=== PATIENT | female | born 1975 | race Caucasian/White ===

== ENCOUNTER 2016-11-10 11:26 | Outpatient (CLI) | payer MEDICAID ==
--- NOTE | 2016-11-10 15:37 | Mammography Report ---
BILATERAL DIGITAL SCREENING MAMMOGRAM with CAD: 11/10/16 CLINICAL: Routine screening. COMPARISON:None available. However, a prior mammogram was apparently done at [facility]. FINDINGS: The breasts are heterogeneously dense, which may obscure small masses. Bilateral parenchymal asymmetries on the CC views require comparison with the prior mammogram or additional imaging.No architectural distortion or suspicious calcifications. IMPRESSION: Bilateral asymmetries requiring further evaluation. BI-RADS CATEGORY: 0 -- Additional Evaluation Required RECOMMENDATION: Comparison with a previous mammogram. We will attempt to obtain a prior mammogram. If we do not obtain a prior mammogram for comparison within 30 days, a revised report will be issued recommending a recall for additional imaging of both breasts. Please be advised that the patient should not schedule an appointment for return until adequate time (at least 2 weeks) has passed for us to obtain the prior mammogram. ACR BI-RADS MAMMOGRAPHIC CODES: 0 = Needs additional imaging evaluation; 1 = Negative; 2 = Benign; 3 = Probably benign; 4 = Suspicious; 5 = Malignant; 6 = Known biopsy-proven malignancy COMMENT: 1. Dense breast tissue, i.e., adenosis, fibrocystic changes, etc., may obscure an underlying neoplasm. 2. Approximately 10% of cancers are not detected with mammography. 3. A negative mammography report should not delay biopsy if a clinically suspicious mass is present. COMMENT: Patient follow-up letters are generated via our [employer] application.
== END 2016-11-10 11:27 | disposition home or self-care (01) ==
LOC: SPVWC 11:26
PROVIDERS: ATTEND Family Medicine
DX: Z12.31 Encounter for screening mammogram for malignant neoplasm of breast (principal)
CPT/HCPCS: 77067; G0202

== ENCOUNTER 2017-01-13 11:20 | Outpatient (CLI) | payer MEDICAID ==
--- NOTE | 2017-01-13 14:09 | Mammography Report ---
RIGHT DIGITAL DIAGNOSTIC MAMMOGRAM and RIGHT BREAST ULTRASOUND: 01/13/17 11:20:00 CLINICAL: Recalled for asymmetries. COMPARISON:11/10/16 screening FINDINGS: ML and spot magnification ML and CC views were performed. Partial effacement of asymmetries on the spot views. In addition, a group of amorphous calcifications is identified within the dominant asymmetry. No layering on the lateral view. Ultrasound of the right breast (including all four quadrants and the retroareolar area) was performed and demonstrated normal fibroglandular and fatty structures except for a single benign cyst at 7 o'clock 3 cm from the nipple measuring 5 x 3 x 4 mm. No solid mass or shadowing. IMPRESSION: Suspicious right upper outer calcifications. BI-RADS CATEGORY: 4--Suspicious RECOMMENDATION: Stereotactic biopsy of the right breast. I discussed the findings and the recommendation for needle core biopsy with the patient at the time of the examination. ACR BI-RADS MAMMOGRAPHIC CODES: 0 = Needs additional imaging evaluation; 1 = Negative; 2 = Benign; 3 = Probably benign; 4 = Suspicious; 5 = Malignant; 6 = Known biopsy-proven malignancy COMMENT: 1. Dense breast tissue, i.e., adenosis, fibrocystic changes, etc., may obscure an underlying neoplasm. 2. Approximately 10% of cancers are not detected with mammography. 3. A negative mammography report should not delay biopsy if a clinically suspicious mass is present. COMMENT: Patient follow-up letters are generated via our [employer] application.
== END 2017-01-13 11:21 | disposition home or self-care (01) ==
LOC: SPVWC 11:20
PROVIDERS: ATTEND Family Medicine
DX: N60.01 Solitary cyst of right breast (principal); R92.1 Mammographic calcification found on diagnostic imaging of breast
CPT/HCPCS: 76641; G0206

== ENCOUNTER 2017-01-27 09:36 | Outpatient (CLI) | payer MEDICAID ==
--- NOTE | 2017-01-27 12:51 | Mammography Report ---
RIGHT DIGITAL DIAGNOSTIC MAMMOGRAM: 01/27/17 09:36:00 CLINICAL: For clip placement immediately status post stereotactic biopsy. COMPARISON:01/13/17 FINDINGS: A biopsy clip is now identified at the site of previously described calcifications which have been largely removed. IMPRESSION: Concordant clip placement status post stereotactic biopsy. BI-RADS CATEGORY: 4--Suspicious Pathology pending.
--- NOTE | 2017-01-27 12:53 | Mammography Report ---
STEREOTACTIC VACUUM ASSISTED BIOPSY WITH CLIP PLACEMENT RIGHT BREAST: 01/27/17 09:36:00 CLINICAL: Calcifications. COMPARISON:01/13/17 FINDINGS: Consent for the procedure was obtained. The group of upper outer calcifications was targeted with stereotactic guidance. The skin was prepped with Betadine and anesthetized with 1% lidocaine. 2% lidocaine with epinephrine was injected for deeper anesthesia. 8 gauge Mammotome biopsy was performed from a approach through a small dermatotomy. Prefire and post-fire images demonstrated satisfactory positioning of the probe. Samples were obtained around the clock face. A specimen radiograph confirmed satisfactory sampling with removal of benefits representative calcifications. A clip was deployed at the biopsy site and placement was confirmed with a radiograph. The probe was removed and hemostasis was achieved with mild pressure. A sterile dressing was applied. The patient tolerated the procedure well and there were no apparent complications. Two view mammogram demonstrated concordant position of the biopsy clip. IMPRESSION: Uncomplicated stereotactic biopsy with clip placement right breast.
== END 2017-01-27 09:37 | disposition home or self-care (01) ==
LOC: SPVWC 09:36
PROVIDERS: ATTEND Family Medicine
DX: C50.511 Malignant neoplasm of lower-outer quadrant of right female breast (principal); D05.11 Intraductal carcinoma in situ of right breast; N64.89 Other specified disorders of breast; Z88.2 Allergy status to sulfonamides
CPT/HCPCS: 19081; 88305; 88361; A4648; G0206

== ENCOUNTER 2017-02-18 12:14 | Outpatient (CLI) | payer MEDICAID ==
--- NOTE | 2017-02-21 10:43 | Magnetic Resonance Report ---
BILATERAL BREAST MRI WITHOUT AND WITH CONTRAST: 02/18/17 12:14:00 CLINICAL: Newly diagnosed right breast cancer. Status post right stereotactic breast biopsy for calcifications on 01/27/17 with pathologic diagnosis of invasive carcinoma NOS, Melstone grade III/III. COMPARISON:11/10/16 bilateral mammogram and 01/13/17 right mammogram. Right breast ultrasound was negative on 01/13/17. TECHNIQUE: Axial 1.0-mm T1 without, axial high resolution 2.0-mm T2 and axial 1.0-mm dynamic Vibrant high-resolution postcontrast T1 fat saturation sequences on a 1.5 Kylie magnet. The examination was performed with an 8 channel dedicated Sentinelle breast coil. Post processing with CAD and subtraction was performed on an [employer] workstation. 19.0 cc of Multihance was injected without incident via a right antecubital vein 22-gauge INT for the contrast portion of the exam. Consent was obtained prior to the administration of the contrast. FINDINGS: Right: Marked background parenchymal enhancement. An irregular enhancing mass at 9:30 o'clock 10.4 cm from the nipple contains a biopsy clip and correlates with the known cancer. It measures 2.2 x 2.2 x 1.3 cm and demonstrates heterogeneous enhancement with mixed kinetics, 283% peak enhancement and 4% type III washout. A second mass is identified approximately 1 cm anterior and slightly more medial than the dominant mass and appears to communicate with the known cancer. It measures 8 x 8 mm and demonstrates heterogeneous enhancement with mixed kinetics, 283% peak enhancement and 4% type III washout. The maximum span of both masses measures 3.5 cm. No other mass or suspicious enhancement of the right breast. A single suspicious right level II axillary lymph node measures 1.2 cm. It hasn't minimal central fat and a 4 mm nodule at its posterior aspect. The margins of the lymph node also appear irregular on some sequences. Left: Moderate background parenchymal enhancement. No mass or suspicious enhancement. A benign intraparenchymal lymph node at 6 o'clock approximately 8 cm from the nipple measures 1.3 cm. It has prominent central fat. No suspicious left axillary or left internal mammary lymph nodes. IMPRESSION: 1. A 3.5 cm right upper breast cancer and one suspicious right axillary lymph node. It is notable that a mass was not identified by ultrasound and mammographic calcifications underestimate the true size of the right breast cancer. 2. Negative left breast. RIGHT BI-RADS 6 -- Known Cancer LEFT BI-RADS 1 -- Negative
== END 2017-02-18 12:15 | disposition home or self-care (01) ==
LOC: SPVIMAG 12:14
PROVIDERS: ATTEND Surgery
DX: C50.411 Malignant neoplasm of upper-outer quadrant of right female breast (principal)
CPT/HCPCS: A9577; C8908; 77059

== ENCOUNTER 2017-03-09 13:20 | Outpatient (CLI) | payer MEDICAID ==
--- NOTE | 2017-03-09 16:36 | Ultrasound Report ---
ULTRASOUND GUIDED NEEDLE CORE BIOPSY OF A RIGHT AXILLARY LYMPH NODE WITH CLIP PLACEMENT : 03/09/17 13:20:00 CLINICAL: Right breast cancer and a suspicious right axillary lymph node by MRI. COMPARISON :MRI Breast 02/18/17 FINDINGS: The procedure was explained to the patient and informed consent was obtained. Ultrasound demonstrated the suspicious lymph node correlating with the MRI finding. The skin in the axilla was prepped with Betadine and anesthetized with 1% lidocaine. Ultrasound guided needle core biopsy of the lymph node was performed through a small dermatotomy using 2% lidocaine with epinephrine for deep anesthesia and a 18-gauge Achieve biopsy device. samples were obtained and placed in formalin. A clip was deployed within the lymph node. Hemostasis was achieved with minimal pressure and a sterile dressing was applied. The patient tolerated the procedure well and there were no apparent complications. She was discharged in good condition and was given instructions for wound care and followup. IMPRESSION: Uncomplicated ultrasound-guided needle core biopsy of a right lymph node with clip placement.
== END 2017-03-09 13:21 | disposition home or self-care (01) ==
LOC: SPVWC 13:20
PROVIDERS: ATTEND Surgery
DX: C50.411 Malignant neoplasm of upper-outer quadrant of right female breast (principal); Z17.0 Estrogen receptor positive status [ER+]; Z88.2 Allergy status to sulfonamides
CPT/HCPCS: 38505; 76942; 88305; 88342

== ENCOUNTER 2017-03-30 08:20 | Day surgery (SDC) | payer MEDICAID ==
[2017-03-29 12:56] LABS: Basophils # (Auto) 0.1 K/mm3 (0.0-0.1); Basophils % (Auto) 0.7 % (0.0-1.8); Eosinophils # (Auto) 0.2 K/mm3 (0.0-0.4); Eosinophils % (Auto) 2.9 % (0.0-4.3); Hematocrit 34.1 % (30.3-42.9); Hemoglobin 11.1 gm/dl (10.1-14.3); Lymphocytes # (Auto) 1.6 K/mm3 (1.2-5.4); Lymphocytes % (Auto) 21.1 % (13.4-35.0); Mean Corpuscular HGB Conc 33 % (30-34); Mean Corpuscular Hemoglobin 24 pg (28-32); Mean Corpuscular Volume 73 fl (79-97); Monocytes # (Auto) 0.6 K/mm3 (0.0-0.8); Monocytes % (Auto) 7.1 % (0.0-7.3); Platelet Count 335 K/mm3 (140-440); Red Blood Count 4.66 M/mm3 (3.65-5.03); Red Cell Distribution Width 15.7 % (13.2-15.2)
[2017-03-29 13:43] LABS: BUN/Creatinine Ratio 18; Blood Urea Nitrogen 11 mg/dL (7-17); Calcium 8.9 mg/dL (8.4-10.2); Hemolysis Index 8
--- NOTE | 2017-03-29 14:37 | Anesthesia Consultation ---
Anesthesia Consult and Med Hx Date of service: 03/29/17 - Airway Anesthetic Teeth Evaluation: Good ROM Head & Neck: Adequate Mental/Hyoid Distance: Adequate Mallampati Class: Class II Intubation Access Assessment: Probably Good - Pulmonary Exam CTA: Yes - Cardiac Exam Cardiac Exam: RRR - Pre-Operative Health Status ASA Pre-Surgery Classification: ASA2 Proposed Anesthetic Plan: General - Pulmonary Hx Smoking: No Hx Asthma: No - Cardiovascular System Hx Hypertension: No - Central Nervous System Hx Psychiatric Problems: No - Endocrine Hx Non-Insulin Dependent Diabetes: Yes - Other Systems Hx Alcohol Use: No Hx Substance Use: No Hx Cancer: Yes
[~2017-03-30 08:20] MED LIST: NACL 0.9% 1000 ML 1,000 ML IV SCH; PEPCID PO NR; WATER FOR IRRIG STERILE IR ONE
[2017-03-30] MEDS ORDERED: XYLOCAINE 1% 20 mL INFILTRATI NR (08:31)
[2017-03-30] MEDS ORDERED: NACL BACTERIOSTATIC INFILTRATI ONE (09:03)
--- NOTE | 2017-03-30 09:25 | Anesthesia Day of Surgery ---
Anesthesia Day of Surgery - Day of Surgery Patient Examined: Yes Patient H&P Reviewed: Yes Patient is NPO: Yes
[2017-03-30] MEDS ORDERED: MARCAINE 0.25% INFILTRATI ONE ×2 (09:44→13:32)
[2017-03-30] MEDS ORDERED: DECADRON ONE ×2 (09:44→12:22)
[2017-03-30] MEDS: VERSED IV NR ×2 (09:46→09:53)
--- NOTE | 2017-03-30 09:56 | Mammography Report ---
NEEDLE LOCALIZATION AND HOOKWIRE PLACEMENT RIGHT BREAST:03/30/17 CLINICAL: Right breast cancer. COMPARISON: 01/27/17 FINDINGS: Using mammographic guidance, 1% lidocaine local anesthesia and sterile technique, a 5.0-cm Dewitt hookwire was placed from a CC from above approach to localize a biopsy clip at the known cancer. Two views demonstrated satisfactory targeting. The hookwire was deployed and an additional lateral view was obtained. The patient tolerated the procedure well and there were no apparent complications. IMPRESSION: Uncomplicated hookwire placement right breast.
[2017-03-30] MEDS ORDERED: SUBLIMAZE ONE (09:59)
[2017-03-30] MEDS ORDERED: XYLOCAINE MPF 2% ONE (09:59)
[2017-03-30] MEDS ORDERED: ZEMURON IV ONE (09:59)
[2017-03-30] MEDS ORDERED: DIPRIVAN 10 MG/ML IV ONE (10:00)
[2017-03-30] MEDS ORDERED: SUBLIMAZE IV NR (10:00)
[2017-03-30] MEDS ORDERED: WATER FOR IRRIG STERILE IR ONE (10:28)
[2017-03-30] MEDS ORDERED: ANCEF/STERILE WATER 2 GM/20 ML IV NR (11:00)
[2017-03-30] MEDS ORDERED: NEO SYNEPHRINE/NS Syringe(OR USE) IV ONE (12:00)
[2017-03-30] MEDS ORDERED: ZOFRAN ONE (12:22)
--- NOTE | 2017-03-30 12:37 | Mammography Report ---
SPECIMEN RADIOGRAPH RIGHT BREAST: 03/30/17 08:20:00 CLINICAL: Surgical excision of a known cancer. FINDINGS: A spiculated mass with a biopsy clip and a hookwire are identified within the specimen. IMPRESSION: Excision of the targeted lesion.
--- NOTE | 2017-03-30 12:51 | Short Stay Summary ---
Short Stay Documentation Date of service: 03/30/17 - History H&P: obtained from office - Allergies and Medications Current Medications: Allergies Sulfa (Sulfonamide Antibiotics) Allergy (Verified 03/25/17 09:22) Hives Home Medications Medication Instructions Recorded Confirmed Last Taken Type Fenofibrate [Tricor] 145 mg PO QDAY 03/25/17 03/30/17 03/28/17 History Ferrous Sulfate [Iron] 325 mg PO DAILY 03/25/17 03/30/17 03/28/17 History Sitagliptin Phosphate [Januvia] 50 mg PO DAILY 03/25/17 03/30/17 03/16/17 History HYDROcodone/APAP 5-325 [[place] 1 each PO Q6HR PRN #30 tablet 03/30/17 Unknown Rx 5/325] Active Medications Cefazolin Sodium (Ancef/Sterile Water 2 Gm/20 Ml) 2 gm IV PREOP NR Stop: 03/30/17 23:00 Famotidine (Pepcid) 20 mg PO PREOP NR Stop: 03/30/17 23:59 Last Admin: 03/30/17 09:47 Dose: 20 mg Sodium Chloride (Nacl 0.9% 1000 Ml) 1,000 mls @ 100 mls/hr IV DIRECT NICHOLAS Last Admin: 03/30/17 09:30 Dose: 100 mls/hr Midazolam HCl (Versed) 2 mg IV PREOP NR Stop: 03/30/17 23:59 Last Admin: 03/30/17 09:53 Dose: 2 mg - Brief post op/procedure progress note Date of procedure: 03/30/17 Pre-op diagnosis: Right breast cancer of the upper outer quadrant Post-op diagnosis: same Procedure: Complex right needle localization partial mastectomy and SLNB Anesthesia: GETA Findings: Radiograph specimen with clip and wire present; 2 SLNs Surgeon: JADA GAMING Station Master: DANETTE RASMUSSEN Estimated blood loss: minimal Pathology: list (right partial mastectomy and SLNsx2) Specimen disposition: to lab Condition: stable - Disposition Condition at discharge: Good Disposition: DC-01 TO HOME OR SELFCARE Short Stay Discharge Plan Activity: other (no heavy lifting) Diet: regular Wound: other (keep incision clean and dry; may shower in 24 hours; no baths, pools or lakes; do not rub or scrub incision) Follow up with: DELORES LARES MD [Primary Care Provider] - 7 Days JADA GAMING MD [Staff Physician] - 7 Days Prescriptions: HYDROcodone/APAP 5-325 [[place] 5/325] 1 each PO Q6HR PRN #30 tablet PRN Reason: Pain
--- NOTE | 2017-03-30 12:59 | Operative Report ---
Operative Report Operative Report: Date of Service: March 30, 2017 Preoperative diagnosis: Right breast cancer of the upper outer quadrant Postoperative diagnosis: Same Procedure: Right needle localization partial mastectomy of the upper outer quadrant and SLNB Surgeon: Rama Henry MD Assistant Manager Pt: Rossana Donato DO Anesthesia: General Findings: Right wire and clip present within radiograph specimen; 2 SLNs Complications: None EBL: Minimal Disposition: PACU in good condition Indications for operative procedure: This is a 41 year old lady with newly diagnosed right breast cancer of the upper outer quadrant, Stage II [id number] ER/ LA positive. Recommendations are to proceed with breast conservation. Genetic testing with no significant gene mutation. She wished to proceed with the above procedure. Procedure in detail: The patient was taken to radiology for wire placement for localization known area of cancer. Patient was then taken to the operating room. Gen. anesthesia was administered. The right nipple was injected with radioisotope. The righ breast and axilla were prepped and draped in the normal sterile operative fashion. The wire was identified. Timeout was performed. Gamma probe was inserted into the axilla. The area of hot spot was identified. A right axillary incision was made with a 15 blade knife with dissection taken down to the subcutaneous tissues. The axillary fascia was opened with the Bovie cautery. The gamma probed was inserted into the axilla and 2 SLNS were identified and dissected free. All remaining counts were less than 10% of the highest count. Lymph nodes were sent to pathology for permanent processing. Hemostasis was obtained in the right axillary cavity. Axillary cavity was appropriately irrigated and suctioned. Hemostasis was noted. Axillary fascia was approximated and closed using interrupted 3-0 Vicryl and the skin brought together and closed using a running 4-0 Monocryl followed by skin affix. Attention was then taken towards the right breast. Lateral breast incision was made with a 15 blade knife and dissection taken down to subcutaneous tissues. First began raising of the medial flap with removal of the wire from the skin with dissection take down to the pectoralis muscle, followed by raising of the lateral flap, superior flap and inferior flap with all flaps taken down to the pectoralis muscle. The breast area of concern was appropriately removed posteriorly from the pectoralis muscle with the aid of the Bovie cautery. The wire was not encountered. Specimen was marked and then sent to pathology and radiology; radiograph specimen with wire and clip present. Breast cavity was irrigated and hemostasis was obtained. Then proceeded with oncoloplastic closure with mobiliation of the posterior deep tissues. The posterior deep breast tissues were approximated and closed using interrupted 3-0 Vicryl. The subcutaneous tissues were approximated and closed using interrupted 3-0 Vicryl followed by closing of the skin with a running 4-0 Monocryl and skin affix. The patient tolerated surgery very well and she was awaken from anesthesia without any complication and transported to PACU in good condition.
[2017-03-30] MEDS ORDERED: NORCO 5/325 PO PRN (13:28)
[2017-03-30] MEDS ORDERED: HEPARIN 10,000 UNITS/10 ML ONE (13:32)
[2017-03-30] MEDS ORDERED: NACL 0.9% 100 ML ONE (13:32)
[2017-03-30 15:08] VITALS: BP 104/59
[2017-03-30] MEDS ORDERED: PHENERGAN PO ONE (16:00)
== END 2017-03-30 15:26 | disposition home or self-care (01) ==
LOC: OR 08:20
PROVIDERS: ATTEND Surgery
DX: C50.411 Malignant neoplasm of upper-outer quadrant of right female breast (principal); E11.9 Type 2 diabetes mellitus without complications; Z80.3 Family history of malignant neoplasm of breast; Z17.0 Estrogen receptor positive status [ER+]; Z88.2 Allergy status to sulfonamides; Z79.899 Other long term (current) drug therapy; Z79.84 Long term (current) use of oral hypoglycemic drugs
CPT/HCPCS: 19281; 19301; 36415; 38525; 64450; 76098; 78800; 80048; 81025; 82962; 85025; 88307; 88341; 88342; 88368; A9541; J1100; J1644; J2250; J2370; J2405; J2704; J3010; J7030; 88333; Q0169

== ENCOUNTER 2017-04-07 16:45 | Emergency (ER) | payer MEDICAID ==
[2017-04-07 17:39] LABS: Basophils % (Auto) 0.4 % (0.0-1.8); Eosinophils # (Auto) 0.3 K/mm3 (0.0-0.4); Eosinophils % (Auto) 3.3 % (0.0-4.3); Hematocrit 35.2 % (30.3-42.9); Hemoglobin 11.2 gm/dl (10.1-14.3); Lymphocytes % (Auto) 21.3 % (13.4-35.0); Mean Corpuscular HGB Conc 32 % (30-34); Mean Corpuscular Volume 74 fl (79-97); Monocytes # (Auto) 0.9 K/mm3 (0.0-0.8); Monocytes % (Auto) 10.2 % (0.0-7.3); Platelet Count 328 K/mm3 (140-440); Red Blood Count 4.76 M/mm3 (3.65-5.03); Red Cell Distribution Width 16.2 % (13.2-15.2)
[2017-04-07 17:43] LABS: Mean Corpuscular Hemoglobin 23 pg (28-32)
[2017-04-07 17:50] LABS: Alanine Aminotransferase 14 units/L (7-56); BUN/Creatinine Ratio 19; Blood Urea Nitrogen 13 mg/dL (7-17); Calcium 8.9 mg/dL (8.4-10.2); Hemolysis Index 5
--- NOTE | 2017-04-07 18:31 | XRay Report ---
FINAL REPORT PROCEDURE: XR CHEST ROUTINE 2V TECHNIQUE: PA and lateral chest radiographs were obtained. CPT 40365 HISTORY: Shortness of breath. COMPARISON: No prior studies are available for comparison. FINDINGS: Heart: Normal. Mediastinum/Vessels: Normal. Lungs/Pleural space: Normal. Bony thorax: No acute osseous abnormality. Slight levo scoliotic curvature of the thoracic lumbar junction. Other: IMPRESSION: No radiographic evidence of acute cardiopulmonary disease.
[2017-04-07 20:49] VITALS: BP 129/73
--- NOTE | 2017-04-07 21:04 | Emergency Department Report ---
ED Shortness of Breath HPI - General Chief Complaint: Dyspnea/Respdistress Stated Complaint: SOB Time Seen by Provider: 04/07/17 20:44 Source: patient Mode of arrival: Ambulatory Limitations: No Limitations - History of Present Illness Initial Comments: Patient is 41 years old female recently diagnosed with right breast cancer went right breast surgery a few days ago. Patient started with a sudden onset of shortness of breath since yesterday. Associated with mild chest pain. She denied any fever or cough recently. MD Complaint: shortness of breath, chest pain -: Sudden, days(s) - Related Data Home Medications Medication Instructions Recorded Confirmed Last Taken Fenofibrate [Tricor] 145 mg PO QDAY 03/25/17 04/07/17 03/28/17 Ferrous Sulfate [Iron] 325 mg PO DAILY 03/25/17 04/07/17 03/28/17 Allergies Allergy/AdvReac Type Severity Reaction Status Date / Time Sulfa (Sulfonamide Allergy Hives Verified 04/07/17 16:49 Antibiotics) ED Review of Systems ROS: Stated complaint: SOB Other details as noted in HPI Comment: All other systems reviewed and negative Constitutional: denies: chills, fever Respiratory: shortness of breath. denies: cough, orthopnea, SOB with exertion, SOB at rest, wheezing Cardiovascular: chest pain. denies: palpitations, dyspnea on exertion, orthopnea Gastrointestinal: denies: abdominal pain, nausea, vomiting, diarrhea, constipation, hematemesis, melena, hematochezia Musculoskeletal: denies: back pain Neurological: denies: headache, weakness, numbness, paresthesias ED Past Medical Hx - Past Medical History Hx Hypertension: No Hx Diabetes: Yes (PRE DX 11/2016) Hx Asthma: No Hx HIV: No - Surgical History Additional Surgical History: BREAST SURGERY - Social History Smoking Status: Never Smoker Substance Use Type: None - Medications Home Medications: Home Medications Medication Instructions Recorded Confirmed Last Taken Type Fenofibrate [Tricor] 145 mg PO QDAY 03/25/17 04/07/17 03/28/17 History Ferrous Sulfate [Iron] 325 mg PO DAILY 03/25/17 04/07/17 03/28/17 History ED Physical Exam - General Limitations: No Limitations General appearance: alert, in no apparent distress - Head Head exam: Present: atraumatic, normocephalic - Eye Eye exam: Present: normal appearance, PERRL - ENT ENT exam: Present: normal exam, normal orophraynx, mucous membranes moist - Neck Neck exam: Present: normal inspection, full ROM. Absent: tenderness, meningismus, lymphadenopathy - Respiratory Respiratory exam: Present: normal lung sounds bilaterally. Absent: respiratory distress, wheezes, rales, rhonchi, stridor, chest wall tenderness, accessory muscle use, decreased breath sounds, prolonged expiratory - Cardiovascular Cardiovascular Exam: Present: regular rate, normal rhythm, normal heart sounds - GI/Abdominal GI/Abdominal exam: Present: soft, normal bowel sounds. Absent: distended, tenderness, guarding, rebound, rigid - Extremities Exam Extremities exam: Present: normal inspection, full ROM, normal capillary refill. Absent: tenderness, pedal edema, calf tenderness - Neurological Exam Neurological exam: Present: alert, oriented X3, CN II-XII intact, normal gait - Skin Skin exam: Present: warm, intact, normal color ED Course Vital Signs 04/07/17 04/07/17 16:50 20:49 Temperature 98.4 F Pulse Rate 78 84 Respiratory 18 16 Rate Blood Pressure 133/87 Blood Pressure 129/73 [Left] O2 Sat by Pulse 100 95 Oximetry ED Medical Decision Making - Lab Data Result diagrams: 04/07/17 17:21 04/07/17 17:21 - EKG Data -: EKG Interpreted by Al EKG shows normal: sinus rhythm - EKG Data Interpretation: no acute changes - Radiology Data Radiology results: report reviewed Referring Physician: JB RAMIREZ Patient Name: MICHAEL TURNER Date of : 1975 Sex: Female Report Date: 2017-04-07 Report Status: Finalized Findings [facility] [address] [place] [address] Cat Scan Report Signed Patient: MICHAEL TURNER MR#: [id number] : 1975 Acct:[id number] Age/Sex: 41 / F ADM Date: 04/07/17 Loc: ED Attending Dr: Ordering Physician: JB RAMIREZ Date of Service: 04/07/17 Procedure(s): CT angio chest Accession Number(s): [id number] cc: MOHAMED H. ELBASHA FINAL REPORT PROCEDURE: CT ANGIO CHEST TECHNIQUE: Computerized tomographic angiography of the chest was performed after the IV injection of iodinated nonionic contrast including image processing. The image data was postprocessed using 2-dimensional multiplanar reformatted (MPR) and 3-dimensional (MIP and/or volume rendered) techniques. HISTORY: SOB,S/P BREAST SURGERY COMPARISON: No prior studies are available for comparison. FINDINGS: Heart and pericardium: Normal. Thoracic aorta: Normal. Pulmonary vasculature: Normal. Lymph nodes: No enlarged thoracic lymph nodes. Lungs: Normal. Pleural space: No effusion, thickening, or pneumothorax. Musculoskeletal structures: No significant abnormality. Upper abdominal structures: No significant abnormality. Other: Postoperative change of the right breast with 4.5 cm fluid collection IMPRESSION: No embolism seen. No focal infiltrate. Postoperative change of the right breast. Transcribed By: BRTaz Dictated By: DUKE WORLEY MD Electronically Authenticated By: DUKE WORLEY MD Signed Date/Time: 04/07/172155 DD/ 55 TD/TT: 04/07/172155 Critical care attestation.: If time is entered above; I have spent that time in minutes in the direct care of this critically ill patient, excluding procedure time. ED Disposition Clinical Impression: Shortness of breath Disposition: -01 TO HOME OR SELFCARE Is pt being admited?: No Condition: Stable Instructions: Dyspnea (ED) Referrals: PRIMARY CARE, [Primary Care Provider] - 3-5 Days
[2017-04-07 21:19] LABS: INR 0.82 (0.87-1.13)
[2017-04-07 21:20] LABS: Partial Thromboplastin Time 32.3 Sec. (24.2-36.6)
[2017-04-07] MEDS ORDERED: NACL ONE (21:39)
--- NOTE | 2017-04-07 22:01 | Cat Scan Report ---
FINAL REPORT PROCEDURE: CT ANGIO CHEST TECHNIQUE: Computerized tomographic angiography of the chest was performed after the IV injection of iodinated nonionic contrast including image processing. The image data was postprocessed using 2-dimensional multiplanar reformatted (MPR) and 3-dimensional (MIP and/or volume rendered) techniques. HISTORY: SOB,S/P BREAST SURGERY COMPARISON: No prior studies are available for comparison. FINDINGS: Heart and pericardium: Normal. Thoracic aorta: Normal. Pulmonary vasculature: Normal. Lymph nodes: No enlarged thoracic lymph nodes. Lungs: Normal. Pleural space: No effusion, thickening, or pneumothorax. Musculoskeletal structures: No significant abnormality. Upper abdominal structures: No significant abnormality. Other: Postoperative change of the right breast with 4.5 cm fluid collection IMPRESSION: No embolism seen. No focal infiltrate. Postoperative change of the right breast.
== END 2017-04-07 23:07 | disposition home or self-care (01) ==
LOC: ED 16:45
DX: R06.02 Shortness of breath (principal)
CPT/HCPCS: 36415; 71046; 71275; 80053; 84484; 85025; 85610; 85730; 93005; 93010; 99284; Q9967